=== PATIENT | female | born 1980 | race Caucasian/White ===

== ENCOUNTER 2019-10-01 12:23 | Emergency (ER) | payer SELFPAY ==
[~2019-10-01] VITALS: Ht 175.3 cm; Wt 81.6 kg
[2019-10-01 14:46] LABS: Basophils # (auto) 0 10 ^3/uL (0-0.2); Basophils % (auto) 0.5 % (0.0-2.0); Eosinophils # (auto) 0 10 ^3/uL (0-0.8); Lymphocytes # (auto) 0.4 10 ^3/uL (0.4-5.4); Monocytes # (auto) 0.4 10 ^3/uL (0-1.3); Neutrophils # (auto) 7.5 10 ^3/uL (1.6-8.6); Red Blood Cells 4.09 10^6/uL (4.0-5.20)
[2019-10-01 14:48] LABS: Eosinophils % (auto) 0.3 % (0.0-7.0); Hematocrit 42.5 % (36.0-46.0); Hemoglobin 14.2 g/dL (12.2-16.2); Lymphocytes % (auto) 4.5 % (10.0-50.0); Mean Corpuscular Hemoglobin 34.8 pg (28.0-32.0); Mean Corpuscular Hgb Conc. 33.4 g/dL (32.0-36.0); Mean Corpuscular Volume 104.1 fL (80.0-100.0); Monocytes % (auto) 5.4 % (0.0-12.0); Neutrophils % (auto) 89.3 % (37.0-80.0); Platelet Count (auto) 313 10^3/uL (140-450); Red Cell Distribution Width 13.1 % (11.8-14.3); White Blood Cell 8.4 10^3/uL (4.4-10.8)
[2019-10-01] MEDS ORDERED: SODIUM CHLORIDE 0.9% 1,000 ML IV ONE (15:00)
[2019-10-01 15:09] LABS: Urine Bacteria FEW /hpf (None Seen); Urine Blood Negative /uL (Negative); Urine Specific Gravity 1.008 (1.001-1.035); Urine WBC 1 /hpf (0 - 5)
[2019-10-01] MEDS ORDERED: THIAMINE 100mg/ml INJ (200mg/2ml VIAL) IV ONE (16:00)
[2019-10-01 17:03] LABS: Albumin 3.9 g/dL (3.4-5.0); Anion Gap 8 (5-15); Blood Alcohol < 3.0 mg/dL (0-5); Blood Urea Nitrogen 7 mg/dL (7-18); Calcium 8.4 mg/dL (8.5-10.1); Carbon Dioxide 28 mmol/L (21-32); Chloride 97 mmol/L (98-107); Glucose 118 mg/dL (74-106); Potassium 3.5 mmol/L (3.5-5.1); Sodium 133 mmol/L (136-145)
[2019-10-01 17:06] LABS: Amphetamine Screen, Urine NEGATIVE (NEGATIVE); Barbiturate Scree,Urine NEGATIVE (NEGATIVE); Benzodiazephine Screen, Urine NEGATIVE (NEGATIVE); Cannabinoid Screen, Urine NEGATIVE (NEGATIVE); Cocaine Screen, Urine NEGATIVE (NEGATIVE); Opiate Scree,Urine NEGATIVE (NEGATIVE); Phencyclidine Screen, Urine NEGATIVE (NEGATIVE)
[2019-10-01 17:07] LABS: Alanine Aminotransferase 117 U/L (13-56); Alkaline Phosphatase 52 U/L (45-117); Aspartate Aminotransferase 79 U/L (15-37); BUN/Creatinine Ratio 6.5; Bilirubin, Total 0.7 mg/dL (0.2-1.0); GFR African American 73 mL/min; GFR Non-African American 60 mL/min; Total Protein 7.9 g/dL (6.4-8.2)
[2019-10-01 17:42] VITALS: BP 130/69
== END 2019-10-01 17:40 | disposition home or self-care (01) ==
LOC: ER 12:23
DX: F41.9 Anxiety disorder, unspecified (principal); F10.239 Alcohol dependence with withdrawal, unspecified; Y90.9 Presence of alcohol in blood, level not specified
CPT/HCPCS: 36415; 80053; 80307; 80320; 81001; 81025; 85025; 93005; 96361; 96374; 99284; J3411; J7030